=== PATIENT | male | born 1960 | race American Indian/Alaskan Native ===

== ENCOUNTER 2020-05-24 11:23 | Emergency (ER) | payer MEDICAID ==
[2020-05-24 11:29] VITALS: BP 194/94
[2020-05-24] MEDS ORDERED: LIDOCAINE (1%) 10 MG/1 ML VIAL 20 ML MDV INFILTRATI ONE (12:34)
--- NOTE | 2020-05-24 12:35 | Emergency Department Report ---
- General Chief complaint: Skin/Abscess/Foreign Body Stated complaint: CYST ON BACK Time Seen by Provider: 05/24/20 12:12 Source: patient Mode of arrival: Ambulatory Limitations: No Limitations - History of Present Illness Initial comments: 59-year-old male complaining of cyst to the mid upper back. He has a history of multiple skin abscess he reports increasing pain swelling and redness to the mid upper back x1 week. Patient denies fever nausea vomiting. He reports a history of diabetes and hypertension he stopped taking Metformin 2 years ago states he has been doing well and he is currently not taking anything for hypertension. Had a lengthy discussion with patient regarding the importance of high blood pressure and diabetes treatment and management he verbalizes understanding MD complaint: abscess/boil -: week(s) (1) Location: back (Mid upper back) Quality: constant Improves with: none Worsens with: palpation Context: none Associated symptoms: denies other symptoms - Related Data Previous Rx's Medication Instructions Recorded Last Taken Type Sulfamethoxazole/Trimethoprim 1 each PO BID 7 Days #14 tablet 05/24/20 Unknown Rx [Bactrim DS TAB] Allergies Allergy/AdvReac Type Severity Reaction Status Date / Time No Known Allergies Allergy Unverified 05/24/20 11:27 Abscess Boil HPI - HPI Chief Complaint: Skin/Abscess/Foreign Body Stated Complaint: CYST ON BACK Time Seen by Provider: 05/24/20 12:12 Duration: >1 Week (8 days) History: Yes Pain, No Fever, No Purulent Drainage, No Numbness, No Foreign Body, No Previous History, No Insect Bite Home Medications: Previous Rx's Medication Instructions Recorded Last Taken Type Sulfamethoxazole/Trimethoprim 1 each PO BID 7 Days #14 tablet 05/24/20 Unknown Rx [Bactrim DS TAB] Allergies/Adverse Reactions: Allergies Allergy/AdvReac Type Severity Reaction Status Date / Time No Known Allergies Allergy Unverified 05/24/20 11:27 ED Review of Systems ROS: Stated complaint: CYST ON BACK Other details as noted in HPI Comment: All other systems reviewed and negative Constitutional: no symptoms reported. denies: chills, fever, malaise, weakness Eyes: denies: eye pain ENT: denies: ear pain Cardiovascular: denies: chest pain, dyspnea on exertion Endocrine: no symptoms reported. denies: excessive sweating, flushing, intolerance to cold, intolerance to heat, increased hunger, increased thirst, increased urine, unexplained weight gain, unexplained weight loss Gastrointestinal: denies: abdominal pain, nausea, constipation Genitourinary: denies: urgency, dysuria, hematuria Neurological: denies: headache, paresthesias Psychiatric: denies: anxiety, depression ED Past Medical Hx - Past Medical History Hx Diabetes: Yes - Surgical History Additional Surgical History: cyst removal - Social History Smoking Status: Never Smoker Substance Use Type: Alcohol - Medications Home Medications: Home Medications Medication Instructions Recorded Confirmed Last Taken Type Sulfamethoxazole/Trimethoprim 1 each PO BID 7 Days #14 tablet 05/24/20 Unknown Rx [Bactrim DS TAB] ED Physical Exam - General Limitations: No Limitations General appearance: alert, in no apparent distress - Head Head exam: Present: atraumatic - Eye Eye exam: Present: normal appearance - ENT ENT exam: Present: normal exam, mucous membranes moist - Neck Neck exam: Present: normal inspection - Respiratory Respiratory exam: Present: normal lung sounds bilaterally - Cardiovascular Cardiovascular Exam: Present: regular rate, normal heart sounds - GI/Abdominal GI/Abdominal exam: Absent: soft, distended, tenderness - Extremities Exam Extremities exam: Present: normal inspection - Back Exam Back exam: Present: other (Mid thoracic round raised area skin intact mild erythema area tender to touch no fluctuance) - Neurological Exam Neurological exam: Present: alert, oriented X3 - Psychiatric Psychiatric exam: Present: normal affect - Skin Skin exam: Present: warm, dry, intact, erythema (Mid upper back) ED Course Vital Signs 05/24/20 11:28 Temperature 98.4 F Pulse Rate 92 H Respiratory 18 Rate Blood Pressure 194/94 O2 Sat by Pulse 96 Oximetry - Reevaluation(s) Reevaluation #1: 05/24/20 13:19 Patient tolerated incision and drainage well - I & D Back Site: Mid thoracic region Blade Size: 11 I & D Procedure: betadine prep, sterile drapes applied Progress: Mid- thoracic back pain. Site known with 7 cc of 2% lidocaine. An incision made small amount of pus and cystic material remove the site is probed to break up inoculations less than 1 cc of blood loss. Site irrigated with normal saline 10 cc. Clean dry dressing applied patient tolerated well. ED Medical Decision Making - Medical Decision Making 59-year-old male with an abscess to his mid upper back I&D performed cyst cyst patient tolerated well discharged home with Bactrim DS x7 days patient plans to follow-up with Dr. Brenna brian for his hypertension and diabetic evaluation and treatment - Differential Diagnosis Skin abscesses dermal cyst staph infection Critical Care Time: No Critical care attestation.: If time is entered above; I have spent that time in minutes in the direct care of this critically ill patient, excluding procedure time. ED Disposition Clinical Impression: Cyst Disposition: DC-01 TO HOME OR SELFCARE Is pt being admited?: No Does the pt Need Aspirin: No Condition: Stable Instructions: Epidermal Cyst Removal, Epidermal Cyst Removal, Care After Additional Instructions: Keep current dressing on for 24 hours. Remove dressing then wash daily with soap and water pat dry and apply a clean dressing take antibiotic as prescribed. Follow-up with your primary care doctor or Dr. Ngo in 3 to 5 days. Return to the emergency room for any worsening symptoms such as increasing pain swelling redness and fever and drainage. You must follow-up for your high blood pressure and diabetes Prescriptions: Sulfamethoxazole/Trimethoprim [Bactrim DS TAB] 1 each PO BID 7 Days #14 tablet Referrals: BING HERNANDEZSHARPS MD FORD [Primary Care Provider] - 3-5 Days TAMIKO NGO MD [Staff Physician] - 3-5 Days Time of Disposition: 13:41
== END 2020-05-24 13:50 | disposition home or self-care (01) ==
LOC: ED 11:23
DX: L72.8 Other follicular cysts of the skin and subcutaneous tissue (principal); E11.9 Type 2 diabetes mellitus without complications; Z98.890 Other specified postprocedural states; Z79.899 Other long term (current) drug therapy
CPT/HCPCS: 82962; 99282

== ENCOUNTER 2020-06-09 11:13 | Outpatient (CLI) | payer MEDICAID ==
[2020-06-09 11:57] LABS: Basophils % (Auto) 1.1 % (0.0-1.8); Eosinophils # (Auto) 0.1 K/mm3 (0.0-0.4); Eosinophils % (Auto) 1.8 % (0.0-4.3); Hematocrit 40.7 % (35.5-45.6); Hemoglobin 14.2 gm/dl (11.8-15.2); Lymphocytes # (Auto) 1.2 K/mm3 (1.2-5.4); Mean Corpuscular HGB Conc 35 % (32-34); Mean Corpuscular Volume 84 fl (84-94); Monocytes # (Auto) 0.3 K/mm3 (0.0-0.8); Monocytes % (Auto) 7.9 % (0.0-7.3); Platelet Count 236 K/mm3 (140-440); Red Blood Count 4.83 M/mm3 (3.65-5.03); Red Cell Distribution Width 12.4 % (13.2-15.2)
[2020-06-09 12:17] LABS: Alanine Aminotransferase 27 units/L (7-56); Albumin 4.2 g/dL (3.9-5); BUN/Creatinine Ratio 12; Blood Urea Nitrogen 11 mg/dL (9-20); Calcium 9.3 mg/dL (8.4-10.2); Chol/HDL Ratio 2.48 %; HDL Cholesterol 64 mg/dL (40-59); Hemolysis Index 3; LDL Cholesterol,Direct 100 mg/dL (50-130)
== END 2020-06-09 11:14 | disposition home or self-care (01) ==
LOC: LAB 11:13
PROVIDERS: ATTEND Internal Medicine
DX: Z00.00 Encounter for general adult medical examination without abnormal findings (principal); E55.9 Vitamin D deficiency, unspecified; R39.11 Hesitancy of micturition; E11.9 Type 2 diabetes mellitus without complications; E78.5 Hyperlipidemia, unspecified; I10 Essential (primary) hypertension; Z13.29 Encounter for screening for other suspected endocrine disorder
CPT/HCPCS: 36415; 80053; 80061; 82652; 83036; 84153; 84443; 85025